=== PATIENT | female | born 1980 | race Caucasian/White ===

== ENCOUNTER 2016-09-17 00:49 | Emergency (ER) | payer OTHER ==
[2016-09-17 00:53] VITALS: TEMP 97.9
[2016-09-17] MEDS ORDERED: ONDANSETRON 4 MG/2 ML VIAL IVP STA (01:08)
[2016-09-17] MEDS ORDERED: ONDANSETRON ODT 4 MG TAB PO STA (01:12)
--- NOTE | 2016-09-17 01:27 | ED ---
Head Injury HPI - General Chief complaint: Head Injury Stated complaint: Fall-Head Injury Time Seen by Provider: 09/17/16 00:55 Source: patient, RN notes reviewed Mode of arrival: ambulatory Limitations: no limitations - History of Present Illness Initial comments: This a 36-year-old female presents emergency Department with chief complaint of head injury. Patient states she has A Left Foot and Was Using Her Crutches in the Dark and States That Her Dog Was on the Floor. She States That She Tripped over Her Dog and Fell and Hit Her Head. She Has Now Believes She Lost Consciousness, but the Headache, Nausea and Photophobia. Patient States That She Has a Small Neck on Top of Her Head and Also Laceration to Her Right Eyebrow Region. Patient States Her Tetanus Is Up-To-Date Last 5 Years. She Denies Any Focal Weakness, Chest Pain, Neck Pain, Back Pain. - Related Data Home Medications Medication Instructions Recorded Confirmed ALPRAZolam [Xanax] 0.25 mg PO Q8HR PRN 03/22/14 02/27/16 Cyclobenzaprine [Flexeril] 10 mg PO BID 02/27/16 02/27/16 Desvenlafaxine Succinate [Pristiq 50 mg PO DAILY 02/27/16 02/27/16 ER] Ibuprofen [Motrin] 600 mg PO Q8HR PRN 02/27/16 02/27/16 busPIRone HCL [Buspar] 7.5 mg PO BID 02/27/16 02/27/16 oxyCODONE-APAP 5-325MG [Percocet 1 tab PO Q6HR PRN 02/27/16 02/27/16 5-325 mg] Previous Rx's Medication Instructions Recorded Ondansetron [Zofran] 4 mg PO Q8HR PRN #8 tab 02/27/16 Ondansetron [Zofran] 4 mg PO Q8HR PRN #8 tab 02/27/16 Ondansetron Odt [Zofran Odt] 4 mg PO Q8HR PRN #10 tab 09/17/16 Allergies/Adverse reactions: Allergies Allergy/AdvReac Type Severity Reaction Status Date / Time codeine Allergy Mild Nausea & Verified 09/17/16 00:54 Vomiting duloxetine [From Cymbalta] Allergy Anaphylaxis Verified 02/27/16 22:15 hydrocodone Allergy Itching Verified 02/27/16 22:15 Review of Systems ROS Statement: Those systems with pertinent positive or pertinent negative responses have been documented in the HPI. ROS Other: All systems not noted in ROS Statement are negative. Past Medical History Past Medical History: No Reported History Additional Past Medical History / Comment(s): Chronic back pain thoracic History of Any Multi-Drug Resistant Organisms: None Reported Past Surgical History: Cholecystectomy Additional Past Surgical History / Comment(s): cyst from ovary, colonoscopy Past Psychological History: Anxiety, Depression Smoking Status: Never smoker Past Alcohol Use History: None Reported Past Drug Use History: None Reported General Exam Limitations: no limitations General appearance: alert, in no apparent distress Head exam: Present: atraumatic, normocephalic. Absent: normal inspection ( Small superficial laceration in the parietal region) Eye exam: Present: normal appearance, PERRL, EOMI, periorbital swelling ( Moderate right), periorbital tenderness (Mild right), other (Ecchymosis noted, superficial 1 cm laceration to the right eyebrow). Absent: scleral icterus, conjunctival injection ENT exam: Present: normal exam, normal oropharynx, mucous membranes moist, TM's normal bilaterally, normal external ear exam Neck exam: Present: normal inspection, full ROM. Absent: tenderness, meningismus, lymphadenopathy Respiratory exam: Present: normal lung sounds bilaterally. Absent: respiratory distress, wheezes, rales, rhonchi, stridor Cardiovascular Exam: Present: regular rate, normal rhythm, normal heart sounds. Absent: systolic murmur, diastolic murmur, rubs, gallop, clicks Neurological exam: Present: alert, oriented X3, CN II-XII intact, reflexes normal. Absent: motor sensory deficit Skin exam: Present: warm, dry, intact, normal color. Absent: rash Course Vital Signs 09/17/16 00:51 Temperature 97.9 F Pulse Rate 90 Respiratory 20 Rate Blood Pressure 158/102 O2 Sat by Pulse 98 Oximetry Medical Decision Making - Medical Decision Making 36-year-old female presented emergency from her for head injury. Patient CT does not show any acute abnormality though does show care malformation. Patiently follow-up with neurosurgeon. Patient will be discharged at this time with depression information. Return parameters were discussed patient is feeling better after Zofran. Patient's tetanus is up-to-date. Patient's laceration does not need closure. 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 Prescriptions: Ondansetron Odt [Zofran Odt] 4 mg PO Q8HR PRN #10 tab PRN Reason: Nausea Referrals: Jacob Nagy DO [Primary Care Provider] - 1-2 days Time of Disposition: 02:37
--- NOTE | 2016-09-17 02:27 | CT ---
EXAM: CT Head Without Intravenous Contrast. CLINICAL HISTORY: Reason: pain TECHNIQUE: Axial computed tomography images of the head/brain without intravenous contrast. CTDI is 60.3 mGy and DLP is 1054.2 mGy-cm. This CT exam was performed using one or more of the following dose reduction techniques: automated exposure control, adjustment of the mA and/or kV according to patient size, and/or use of iterative reconstruction technique. COMPARISON: No relevant prior studies available. FINDINGS: Brain: Unremarkable. No hemorrhage. No significant white matter disease. No edema. Ventricles: Unremarkable. No ventriculomegaly. Bones: No acute fracture. Sinuses: Unremarkable as visualized. No acute sinusitis. Mastoid air cells: Unremarkable as visualized. No mastoid effusion. Extracranial soft tissues: Moderate right periorbital soft tissue swelling. IMPRESSION: No acute intracranial abnormality. Low-lying configuration of the cerebellar tonsils, suggesting a Chiari I malformation. EXAM: CT Cervical Spine Without Intravenous Contrast. CLINICAL HISTORY: Reason: pain TECHNIQUE: Axial computed tomography images of the cervical spine without intravenous contrast. CTDI is 32.7 mGy and DLP is 569.4 mGy-cm. This CT exam was performed using one or more of the following dose reduction techniques: automated exposure control, adjustment of the mA and/or kV according to patient size, and/or use of iterative reconstruction technique. COMPARISON: No relevant prior studies available. FINDINGS: Vertebrae: Unremarkable. No acute fracture. Discs/spinal canal/neural foramina: Mild cervical degenerative disc disease. No spinal canal stenosis. Soft tissues: Unremarkable. Lung apices: Unremarkable as visualized. IMPRESSION: No acute findings in the cervical spine
[2016-09-17] MEDS ORDERED: ONDANSETRON 4 MG ODT STARTER PACK 2 TAB BTL PO STA (02:42)
[2016-09-17 02:59] VITALS: BP 127/65; PULSE 88; RESP 16
== END 2016-09-17 02:59 | disposition home or self-care (01) ==
LOC: EC 00:49
DX: S06.0X0A Concussion without loss of consciousness, initial encounter (principal); S01.111A Laceration without foreign body of right eyelid and periocular area, initial encounter; S01.81XA Laceration without foreign body of other part of head, initial encounter; G93.5 Compression of brain; R11.0 Nausea; F32.9 Major depressive disorder, single episode, unspecified; F41.9 Anxiety disorder, unspecified; Z79.899 Other long term (current) drug therapy; Z88.5 Allergy status to narcotic agent; Z88.8 Allergy status to other drugs, medicaments and biological substances; W01.10XA Fall on same level from slipping, tripping and stumbling with subsequent striking against unspecified object, initial encounter
CPT/HCPCS: 72125; 70450; 99283; S0119

== ENCOUNTER 2021-01-08 14:41 | Emergency (ER) | payer OTHER ==
[2021-01-08] MEDS ORDERED: KETOROLAC 15 MG/ML 1 ML VIAL IVP STA (15:47)
[2021-01-08] MEDS ORDERED: ONDANSETRON 4 MG/2 ML VIAL IVP STA (15:47)
[2021-01-08] MEDS ORDERED: SODIUM CHLORIDE 0.9% 1,000 ML IV STA (15:47)
[2021-01-08] MEDS ORDERED: diphenhydrAMINE 50 MG/ML 1 ML VIAL IVP STA (15:47)
--- NOTE | 2021-01-08 16:51 | ED ---
Headache HPI - General Chief Complaint: Headache Stated Complaint: Headache Time Seen by Provider: 01/08/21 15:33 Mode of arrival: ambulatory Limitations: no limitations - History of Present Illness Initial Comments: Patient is a 40-year-old female with history of chronic headaches, presenting to the emergency department with complaints of a headache and worsening over the past few days. She states that she is getting really upset because of her chronic headaches and if she feels like this is making it worse as well. She is having light sensitivity, some mild nausea associated with it as well. She denies any dizziness or blurry vision. She states this feels like her normal chronic headaches which is causing her to be anxious and teary-eyed and feels like it is making her symptoms worse. She denies any fevers or chills, no neck pain. No chest pain or shortness of breath today. She has no further complaints. - Related Data Home Medications Medication Instructions Recorded Confirmed ALPRAZolam [Xanax] 0.25 mg PO Q8HR PRN 03/22/14 02/27/16 Cyclobenzaprine [Flexeril] 10 mg PO BID 02/27/16 02/27/16 Desvenlafaxine Succinate [Pristiq 50 mg PO DAILY 02/27/16 02/27/16 ER] Ibuprofen [Motrin] 600 mg PO Q8HR PRN 02/27/16 02/27/16 busPIRone HCL [Buspar] 7.5 mg PO BID 02/27/16 02/27/16 oxyCODONE-APAP 5-325MG [Percocet 1 tab PO Q6HR PRN 02/27/16 02/27/16 5-325 mg] Previous Rx's Medication Instructions Recorded Ondansetron [Zofran] 4 mg PO Q8HR PRN #8 tab 02/27/16 Ondansetron [Zofran] 4 mg PO Q8HR PRN #8 tab 02/27/16 Ondansetron Odt [Zofran Odt] 4 mg PO Q8HR PRN #10 tab 09/17/16 Allergies Allergy/AdvReac Type Severity Reaction Status Date / Time codeine Allergy Mild Nausea & Verified 01/08/21 15:31 Vomiting duloxetine [From Cymbalta] Allergy Anaphylaxis Verified 01/08/21 15:31 hydrocodone Allergy Itching Verified 01/08/21 15:31 Review of Systems ROS Statement: Those systems with pertinent positive or pertinent negative responses have been documented in the HPI. ROS Other: All systems not noted in ROS Statement are negative. Past Medical History Past Medical History: No Reported History Additional Past Medical History / Comment(s): Chronic back pain thoracic, chronic headache History of Any Multi-Drug Resistant Organisms: None Reported Past Surgical History: Cholecystectomy Additional Past Surgical History / Comment(s): cyst from ovary, colonoscopy Past Psychological History: Anxiety, Depression Smoking Status: Never smoker Past Alcohol Use History: None Reported Past Drug Use History: None Reported General Exam - General Exam Comments Initial Comments: GENERAL: Patient is well-developed and well-nourished. Patient is nontoxic and in mild distress. HEAD: Atraumatic, normocephalic. EYES: Pupils equal round and reactive to light, extraocular movements intact, sclera anicteric, conjunctiva are normal. Eyelids were unremarkable. ENT: Nares patent, oropharynx clear without exudates. Moist mucous membranes. NECK: Normal range of motion, supple without lymphadenopathy or JVD. LUNGS: Unlabored respirations. Breath sounds clear to auscultation bilaterally and equal. No wheezes rales or rhonchi. HEART: Regular rate and rhythm without murmurs, rubs or gallops. ABDOMEN: Soft, nontender, normoactive bowel sounds. No guarding, no rebound. No masses appreciated. : Deferred MUSCULOSKELETAL: Normal extremities with adequate strength and normal range of motion, no pitting or edema. No clubbing or cyanosis. NEUROLOGICAL: Patient is alert and oriented x 3. Motor and sensory are also intact. Cranial nerves II through XII grossly intact. Symmetrical smile. Normal speech, normal gait. PSYCH: Normal mood, normal affect. SKIN: Warm, Dry, normal turgor, no rashes or lesions noted. Limitations: no limitations Course Vital Signs 01/08/21 15:25 Temperature 98.3 F Pulse Rate 99 Respiratory 20 Rate Blood Pressure 158/98 O2 Sat by Pulse 99 Oximetry Medical Decision Making - Medical Decision Making Patient is a 40-year-old female with history of chronic headaches, presenting with a headache increasing with the past few days. She denies any dizziness or blurry vision. Her exam is unremarkable, no acute neuro deficits. She is having some anxiety associated this and getting upset secondary to the fact that she's been having headaches for a long time now. She has been seeing pain management for this. Patient did not want anything stronger than Toradol. I gave her some fluids, Benadryl, Zofran and Toradol. She reports improvement in her symptoms. States her pain is about 4/10 and she feels much better. Patient states her neighbor is coming to pick her up. She feels stable for discharge. She will follow-up with her regular doctors. Return parameters were discussed with her and she verbalized understanding. Case discussed with Dr. Sandoval. Disposition Clinical Impression: Headache Disposition: HOME SELF-CARE Condition: Stable Instructions (If sedation given, give patient instructions): Acute Headache (ED) Additional Instructions: Please return to the Emergency Department if symptoms worsen or any other concerns. Trial of Excedrin extra strength for any future severe headaches. Please follow up with your primary care physician. Is patient prescribed a controlled substance at d/c from ED?: No Referrals: Chidi Romero DO [Primary Care Provider] - 1-2 days Time of Disposition: 16:51
[2021-01-08 17:02] VITALS: BP 128/78; PULSE 74; RESP 16; TEMP 98.2
== END 2021-01-08 17:01 | disposition home or self-care (01) ==
LOC: EC 14:41
DX: R51.9 Headache, unspecified (principal); F32.9 Major depressive disorder, single episode, unspecified; F41.9 Anxiety disorder, unspecified; Z79.1 Long term (current) use of non-steroidal anti-inflammatories (NSAID); Z79.899 Other long term (current) drug therapy; Z88.5 Allergy status to narcotic agent; Z88.8 Allergy status to other drugs, medicaments and biological substances; Z90.49 Acquired absence of other specified parts of digestive tract
CPT/HCPCS: 96374; 96375 ×2; 96361; 99283; J1200; J2405; J1885

== ENCOUNTER → 2022-10-10 | Outpatient (CLI) | payer OTHER ==
--- NOTE | 2022-10-10 15:28 | US ---
EXAMINATION TYPE: US kidneys/renal and bladder DATE OF EXAM: 10/10/2022 COMPARISON: NONE CLINICAL INDICATION: Female, 42 years old with history of R10.9 ABD PAIN; Flank pain x couple weeks. EXAM MEASUREMENTS: Right Kidney: 11.5 x 5.6 x 5.2 cm Left Kidney: 12.9 x 6.5 x 6.0 cm Right Kidney: No hydronephrosis or masses seen Left Kidney: *Appears enlarged. Hyperechoic focus seen at mid: 0.3 x 0.4 x 0.2 cm. Bladder: Appears wnl Bilateral Jets seen: Yes Urinary bladder is sonolucent. IMPRESSION: 1. Nonobstructing left renal stone
== END | disposition home or self-care (01) ==
LOC: RADUSWWP 07:44
PROVIDERS: ATTEND Family Medicine
DX: N20.0 Calculus of kidney (principal)
CPT/HCPCS: 76770

== ENCOUNTER 2023-02-16 16:51 | Emergency (ER) | payer OTHER ==
[2023-02-16 17:33] VITALS: TEMP 99.1
--- NOTE | 2023-02-16 17:46 | ED ---
General Adult HPI - General Chief complaint: Psychiatric Symptoms Stated complaint: Mental Health Time Seen by Provider: 02/16/23 17:19 Source: patient, RN notes reviewed, old records reviewed Mode of arrival: ambulatory Limitations: no limitations - History of Present Illness Initial comments: 42-year-old female brought in for mental health evaluation. Local police had accompanied the patient and have petitioned for mental health evaluation. She had cut her left forearm which she states she has done before after an argument with her . She does deal with depression and follows as an outpatient regarding mental health. - Related Data Home Medications Medication Instructions Recorded Confirmed ALPRAZolam [Xanax] 0.25 mg PO Q8HR PRN 03/22/14 02/27/16 Cyclobenzaprine [Flexeril] 10 mg PO BID 02/27/16 02/27/16 Desvenlafaxine Succinate [Pristiq 50 mg PO DAILY 02/27/16 02/27/16 ER] Ibuprofen [Motrin] 600 mg PO Q8HR PRN 02/27/16 02/27/16 busPIRone HCL [Buspar] 7.5 mg PO BID 02/27/16 02/27/16 oxyCODONE-APAP 5-325MG [Percocet 1 tab PO Q6HR PRN 02/27/16 02/27/16 5-325 mg] Previous Rx's Medication Instructions Recorded Ondansetron [Zofran] 4 mg PO Q8HR PRN #8 tab 02/27/16 Ondansetron [Zofran] 4 mg PO Q8HR PRN #8 tab 02/27/16 Ondansetron Odt [Zofran Odt] 4 mg PO Q8HR PRN #10 tab 09/17/16 Allergies Allergy/AdvReac Type Severity Reaction Status Date / Time codeine Allergy Mild Nausea & Verified 11/17/22 18:22 Vomiting duloxetine [From Cymbalta] Allergy Anaphylaxis Verified 11/17/22 18:22 hydrocodone Allergy Itching Verified 11/17/22 18:22 Review of Systems ROS Statement: Those systems with pertinent positive or pertinent negative responses have been documented in the HPI. ROS Other: All systems not noted in ROS Statement are negative. Past Medical History Past Medical History: No Reported History Additional Past Medical History / Comment(s): Chronic back pain thoracic, chronic headache History of Any Multi-Drug Resistant Organisms: None Reported Past Surgical History: Cholecystectomy Additional Past Surgical History / Comment(s): cyst from ovary, colonoscopy Past Psychological History: Anxiety, Depression Smoking Status: Never smoker Past Alcohol Use History: None Reported Past Drug Use History: None Reported General Exam Limitations: no limitations General appearance: alert, in no apparent distress, anxious Head exam: Present: atraumatic, normocephalic Eye exam: Present: normal appearance, PERRL Respiratory exam: Present: normal lung sounds bilaterally. Absent: respiratory distress, wheezes Cardiovascular Exam: Present: regular rate, normal rhythm GI/Abdominal exam: Present: soft. Absent: distended, tenderness, guarding Neurological exam: Present: alert Psychiatric exam: Present: anxious, suicidal ideation Skin exam: Present: warm, dry, other (Superficial laceration to the left forearm, no repairable laceration) Course Vital Signs 02/16/23 17:12 Temperature 99.1 F Pulse Rate 76 Respiratory 16 Rate Blood Pressure 153/96 O2 Sat by Pulse 98 Oximetry - Reevaluation(s) Reevaluation #1: 02/16/23 17:46 Cleared for EPS evaluation. Medical Decision Making - Medical Decision Making Was pt. sent in by a medical professional or institution (, PA, [employer], urgent care, hospital, or snf...) When possible be specific @ -No Did you speak to anyone other than the patient for history (EMS, parent, family, police, friend...)? What history was obtained from this source @ -No Did you review nursing and triage notes (agree or disagree)? Why? @ -I reviewed and agree with nursing and triage notes Were old charts reviewed (outside hosp., previous admission, EMS record, old EKG, old radiological studies, urgent care reports/EKG's, snf records)? Report findings @ -No old charts were reviewed Differential Diagnosis (chest pain, altered mental status, abdominal pain women, abdominal pain men, vaginal bleeding, weakness, fever, dyspnea, syncope, head ache, dizziness, GI bleed, back pain, seizure, CVA, palpatations, mental health, musculoskeletal)? @ Differential Mental Health Depression, anxiety, bipolar, psychosis, schizophrenia, borderline personality, situational depression, adjustment disorder, behavioral disorder, brain tumor, malingering, substance abuse, encephalopathy, medication reaction, dementia, hypothyroidism, degenerative neurologic disorder, lupus.... This is not meant to be all-inclusive list EKG interpreted by me (3pts min.). @ -As above X-rays interpreted by me (1pt min.). @ -None done CT interpreted by me (1pt min.). @ -None done U/S interpreted by me (1pt. min.). @ -None done What testing was considered but not performed or refused? (CT, X-rays, U/S, labs)? Why? @ -None What meds were considered but not given or refused? Why? @ -None Did you discuss the management of the patient with other professionals (professionals i.e. Dr., PA, [employer], lab, RT, psych nurse, social services, commercial pest control representative, teacher, community service officer coordinator, leather case finisher)? Give summary @Case discussed with EPS nurse Was smoking cessation discussed for >3mins.? @ -No Was critical care preformed (if so, how long)? @ -No Were there social determinants of health that impacted care today? How? (Homelessness, low income, unemployed, alcoholism, drug addiction, transportation, low edu. Level, literacy, decrease access to med. care, fpc, rehab)? @ -No Was there de-escalation of care discussed even if they declined (Discuss DNR or withdrawal of care, Hospice)? DNR status @ -No What co-morbidities impacted this encounter? (DM, HTN, Smoking, COPD, CAD, Cancer, CVA, ARF, Chemo, Hep., AIDS, mental health diagnosis, sleep apnea, morbid obesity)? @ -[Depression and anxiety Was patient admitted / discharged? Hospital course, mention meds given and route, prescriptions, significant lab abnormalities, going to OR and other pertinent info. @ -[22-year-old female had been medically cleared and evaluated by EPS after she was petitioned by local police. Patient was felt to be safe for discharge and has a safety plan. She has good outpatient follow-up and is given return parameters. Undiagnosed new problem with uncertain prognosis? @ -No Drug Therapy requiring intensive monitoring for toxicity (Heparin, Nitro, Insulin, Cardizem)? @ -No Were any procedures done? @ -No Diagnosis/symptom? @ -Depression Acute, or Chronic, or Acute on Chronic? @ -[Acute on chronic Uncomplicated (without systemic symptoms) or Complicated (systemic symptoms)? @ -default Side effects of treatment? @ -No Exacerbation, Progression, or Severe Exacerbation? @ -No Poses a threat to life or bodily function? How? (Chest pain, [place], PA, pneumonia, PE, COPD, DKA, ARF, appy, cholecystitis, CVA, Diverticulitis, Homicidal, Suicidal, threat to staff... and all critical care pts) @ -[Low risk at this time - Lab Data Lab Results 02/16/23 Range/Units 17:51 Urine Opiates Screen Not Detected (NotDetected) Ur Oxycodone Screen Not Detected (NotDetected) Urine Methadone Screen Not Detected (NotDetected) Ur Propoxyphene Screen Not Detected (NotDetected) Ur Barbiturates Screen Not Detected (NotDetected) U Tricyclic Antidepress Not Detected (NotDetected) Ur Phencyclidine Scrn Not Detected (NotDetected) Ur Amphetamines Screen Not Detected (NotDetected) U Methamphetamines Scrn Not Detected (NotDetected) U Benzodiazepines Scrn Not Detected (NotDetected) Urine Cocaine Screen Not Detected (NotDetected) U Marijuana (THC) Screen Detected H (NotDetected) Disposition Clinical Impression: Depression Disposition: HOME SELF-CARE Condition: Fair Instructions (If sedation given, give patient instructions): Depression (ED) Additional Instructions: Please follow up with with your psychiatrist and/or therapist as an outpatient. Please return with any worsening or changing symptoms Is patient prescribed a controlled substance at d/c from ED?: No Referrals: Jacob Nagy DO [Primary Care Provider] - 1-2 days Time of Disposition: 19:57
[2023-02-16 18:28] LABS: Amphetamine Screen,Urine Not Detected (NotDetected); Barbiturate Screen,Urine Not Detected (NotDetected); Benzodiazepines Screen,Urine Not Detected (NotDetected); Cocaine Screen,Urine Not Detected (NotDetected); Methadone Screen, Urine Not Detected (NotDetected); Opiate Screen,Urine Not Detected (NotDetected); Oxycodone Screen, Urine Not Detected (NotDetected); Phencyclidine Screen,Urine Not Detected (NotDetected); Tricyclic Antidepressant,Urine Not Detected (NotDetected); Urn Cannabinoid Scrn Detected (NotDetected)
[2023-02-16 20:33] VITALS: BP 145/86; PULSE 74; RESP 18
== END 2023-02-16 20:27 | disposition home or self-care (01) ==
LOC: EC 16:51
DX: F32.A Depression, unspecified (principal); F41.9 Anxiety disorder, unspecified; Z88.5 Allergy status to narcotic agent; Z88.8 Allergy status to other drugs, medicaments and biological substances; Z79.899 Other long term (current) drug therapy
CPT/HCPCS: 80306; 82075; 99285

== ENCOUNTER 2023-08-15 16:02 | Emergency (ER) | payer OTHER ==
[2023-08-15 16:25] VITALS: RESP 20
--- NOTE | 2023-08-15 16:45 | ED ---
Female Urogenital HPI - General Chief complaint: Urogenital Stated complaint: Urogenital Time Seen by Provider: 08/15/23 16:10 Source: patient, RN notes reviewed Mode of arrival: ambulatory Limitations: no limitations - History of Present Illness Initial comments: 43-year-old female presenting with hematuria x 1 day. States she was treated for UTI with Bactrim from urgent care 3 days ago. Symptoms were initially urinary urgency, dysuria, and suprapubic discomfort. symptoms are improving, however yesterday patient noticed clots of blood in her urine. Admits mild low back pain and nausea. patient states she initially thought she was on her menst rual period but discovered blood was coming from the urethra and not the vagina. She is tolerating orals. last menstrual period was 3 weeks ago. She is a lifetime non-smoker. - Related Data Previous Rx's Medication Instructions Recorded Ketorolac [Toradol] 10 mg PO Q8HR #15 tab 08/15/23 Tamsulosin [Flomax] 0.4 mg PO DAILY #7 cap 08/15/23 Allergies Allergy/AdvReac Type Severity Reaction Status Date / Time codeine Allergy Mild Nausea & Verified 08/15/23 16:19 Vomiting acetaminophen Allergy Anaphylaxis Verified 08/15/23 16:19 [From Tylenol-Codeine #3] duloxetine [From Cymbalta] Allergy Anaphylaxis Verified 08/15/23 16:19 hydrocodone Allergy Itching Verified 08/15/23 16:19 Review of Systems ROS Statement: Those systems with pertinent positive or pertinent negative responses have been documented in the HPI. ROS Other: All systems not noted in ROS Statement are negative. Past Medical History Past Medical History: No Reported History Additional Past Medical History / Comment(s): Chronic back pain thoracic, chronic headache History of Any Multi-Drug Resistant Organisms: None Reported Past Surgical History: Cholecystectomy Additional Past Surgical History / Comment(s): cyst from ovary, colonoscopy Past Psychological History: Anxiety, Depression Smoking Status: Never smoker Past Alcohol Use History: None Reported Past Drug Use History: None Reported General Exam Limitations: no limitations General appearance: alert, in no apparent distress Respiratory exam: Present: normal lung sounds bilaterally. Absent: respiratory distress, wheezes, rales, rhonchi, stridor Cardiovascular Exam: Present: regular rate, normal rhythm, normal heart sounds. Absent: systolic murmur, diastolic murmur, rubs, gallop, clicks GI/Abdominal exam: Present: soft, tenderness (Mild suprapubic tenderness), normal bowel sounds. Absent: distended, guarding, rebound, rigid Back exam: Absent: CVA tenderness (R), CVA tenderness (L) Neurological exam: Present: alert, oriented X3, CN II-XII intact Psychiatric exam: Present: normal affect, normal mood Skin exam: Present: warm, dry, intact, normal color. Absent: rash Course Vital Signs 08/15/23 08/15/23 16:17 19:31 Temperature 98.1 F 97.9 F Pulse Rate 73 71 Respiratory 20 20 Rate Blood Pressure 124/89 121/76 O2 Sat by Pulse 99 99 Oximetry Medical Decision Making - Medical Decision Making Was pt. sent in by a medical professional or institution (, PA, CANDY PACKER, urgent care, hospital, or retirement...) When possible be specific @ -No Did you speak to anyone other than the patient for history (EMS, parent, family, police, friend...)? What history was obtained from this source @ -No Did you review nursing and triage notes (agree or disagree)? Why? @ -I reviewed and agree with nursing and triage notes Were old charts reviewed (outside hosp., previous admission, EMS record, old EKG, old radiological studies, urgent care reports/EKG's, retirement records)? Report findings @ -No old charts were reviewed Differential Diagnosis (chest pain, altered mental status, abdominal pain women, abdominal pain men, vaginal bleeding, weakness, fever, dyspnea, syncope, headache, dizziness, GI bleed, back pain, seizure, CVA, palpatations, mental health, musculoskeletal)? @ -Nephrolithiasis, urinary tract infection, bladder cancer, routine menses EKG interpreted by me (3pts min.). @ -None X-rays interpreted by me (1pt min.). @ -None done CT interpreted by me (1pt min.). @ -CT of abdomen pelvis reveal 2 mm stone in right kidney with no hydronephrosis U/S interpreted by me (1pt. min.). @ -None done What testing was considered but not performed or refused? (CT, X-rays, U/S, labs)? Why? @ -None What meds were considered but not given or refused? Why? @ -None Did you discuss the management of the patient with other professionals (professionals i.e. , PA, CANDY PACKER, lab, RT, psych nurse, social group worker, pilot plant operator helper, teacher, custom protection officer, therapeutic case manager)? Give summary @ -No Was smoking cessation discussed for >3mins.? @ -No Was critical care preformed (if so, how long)? @ -No Were there social determinants of health that impacted care today? How? (Homelessness, low income, unemployed, alcoholism, drug addiction, transportation, low edu. Level, literacy, decrease access to med. care, shelter, rehab)? @ -No Was there de-escalation of care discussed even if they declined (Discuss DNR or withdrawal of care, Hospice)? DNR status @ -No What co-morbidities impacted this encounter? (DM, HTN, Smoking, COPD, CAD, Cancer, CVA, ARF, Chemo, Hep., AIDS, mental health diagnosis, sleep apnea, morbid obesity)? @ -None Was patient admitted / discharged? Hospital course, mention meds given and route, prescriptions, significant lab abnormalities, going to OR and other pertinent info. @ -Patient was discharged. Patient was seen and evaluated for gross hematuria x 1 day. Is currently being treated for UTI with Bactrim. CT reveals 2 mm kidney stone on right side. Patient given IV fluids, Toradol, and Zofran which relieved symptoms. UA positive for blood and white blood cells, patient is currently taking Bactrim. Patient is discharged with Toradol and Flomax. Discussed aggressive hydration. Return symptoms discussed. Patient discharged in stable condition. Case discussed with Dr. Davis Undiagnosed new problem with uncertain prognosis? @ -No Drug Therapy requiring intensive monitoring for toxicity (Heparin, Nitro, Insulin, Cardizem)? @ -No Were any procedures done? @ -No Diagnosis/symptom? @ -Nephrolithiasis Acute, or Chronic, or Acute on Chronic? @ -Acute Uncomplicated (without systemic symptoms) or Complicated (systemic symptoms)? @ -Uncomplicated Side effects of treatment? @ -No Exacerbation, Progression, or Severe Exacerbation? @ -No Poses a threat to life or bodily function? How? (Chest pain, USA, MA, pneumonia, PE, COPD, DKA, ARF, appy, cholecystitis, CVA, Diverticulitis, Homicidal, Suicidal, threat to staff... and all critical care pts) @ -No - Lab Data Result diagrams: 08/15/23 17:40 08/15/23 17:40 Lab Results 08/15/23 08/15/23 08/15/23 Range/Units 17:40 17:40 17:40 WBC 5.2 (3.8-10.6) k/uL RBC 4.47 (3.80-5.40) m/uL Hgb 12.9 (11.4-16.0) gm/dL Hct 39.8 (34.0-46.0) % MCV 89.1 (80.0-100.0) fL MCH 28.9 (25.0-35.0) pg MCHC 32.5 (31.0-37.0) g/dL RDW 12.5 (11.5-15.5) % Plt Count 318 (150-450) k/uL MPV 7.1 Neutrophils % 59 % Lymphocytes % 24 % Monocytes % 9 % Eosinophils % 4 % Basophils % 1 % Neutrophils # 3.1 (1.3-7.7) k/uL Lymphocytes # 1.2 (1.0-4.8) k/uL Monocytes # 0.5 (0-1.0) k/uL Eosinophils # 0.2 (0-0.7) k/uL Basophils # 0.0 (0-0.2) k/uL Sodium (137-145) mmol/L Potassium (3.5-5.1) mmol/L Chloride (98-107) mmol/L Carbon Dioxide (22-30) mmol/L Anion Gap mmol/L BUN (7-17) mg/dL Creatinine (0.52-1.04) mg/dL Est GFR (CKD-EPI)AfAm (>60 ml/min/1.73 sqM) Est GFR (CKD-EPI)NonAf (>60 ml/min/1.73 sqM) Glucose (74-99) mg/dL Calcium (8.4-10.2) mg/dL Total Bilirubin (0.2-1.3) mg/dL AST (14-36) U/L ALT (4-34) U/L Alkaline Phosphatase (38-126) U/L Total Protein (6.3-8.2) g/dL Albumin (3.5-5.0) g/dL Urine Color Dark Brown Urine Appearance Bloody H (Clear) Urine RBC >182 H (0-5) /hpf Urine WBC 70 H (0-5) /hpf Ur Squamous Epith Cells 17 H (0-4) /hpf Urine Mucus Many H (None) /hpf Urine HCG, Qual Not Detected (Not Detectd) 08/15/23 Range/Units 17:40 WBC (3.8-10.6) k/uL RBC (3.80-5.40) m/uL Hgb (11.4-16.0) gm/dL Hct (34.0-46.0) % MCV (80.0-100.0) fL MCH (25.0-35.0) pg MCHC (31.0-37.0) g/dL RDW (11.5-15.5) % Plt Count (150-450) k/uL MPV Neutrophils % % Lymphocytes % % Monocytes % % Eosinophils % % Basophils % % Neutrophils # (1.3-7.7) k/uL Lymphocytes # (1.0-4.8) k/uL Monocytes # (0-1.0) k/uL Eosinophils # (0-0.7) k/uL Basophils # (0-0.2) k/uL Sodium 137 (137-145) mmol/L Potassium 4.0 (3.5-5.1) mmol/L Chloride 105 (98-107) mmol/L Carbon Dioxide 24 (22-30) mmol/L Anion Gap 8 mmol/L BUN 14 (7-17) mg/dL Creatinine 0.58 (0.52-1.04) mg/dL Est GFR (CKD-EPI)AfAm >90 (>60 ml/min/1.73 sqM) Est GFR (CKD-EPI)NonAf >90 (>60 ml/min/1.73 sqM) Glucose 91 (74-99) mg/dL Calcium 9.1 (8.4-10.2) mg/dL Total Bilirubin 0.5 (0.2-1.3) mg/dL AST 26 (14-36) U/L ALT 17 (4-34) U/L Alkaline Phosphatase 70 (38-126) U/L Total Protein 7.4 (6.3-8.2) g/dL Albumin 4.2 (3.5-5.0) g/dL Urine Color Urine Appearance (Clear) Urine RBC (0-5) /hpf Urine WBC (0-5) /hpf Ur Squamous Epith Cells (0-4) /hpf Urine Mucus (None) /hpf Urine HCG, Qual (Not Detectd) Disposition Clinical Impression: Right nephrolithiasis Disposition: HOME SELF-CARE Condition: Stable Instructions (If sedation given, give patient instructions): Kidney Stones (ED) Additional Instructions: Please return to the Emergency Department if symptoms worsen or any other concerns. Prescriptions: Tamsulosin [Flomax] 0.4 mg PO DAILY #7 cap Ketorolac [Toradol] 10 mg PO Q8HR #15 tab Is patient prescribed a controlled substance at d/c from ED?: No Referrals: Jacob Nagy DO [Primary Care Provider] - 1-2 days Time of Disposition: 19:13
[2023-08-15] MEDS: ONDANSETRON 4 MG/2 ML VIAL IVP STA (17:34)
[2023-08-15] MEDS: SODIUM CHLORIDE 0.9% 1,000 ML IV STA (17:35)
[2023-08-15 17:48] LABS: Basophils % (A) 1 %; Eosinophils # (A) 0.2 k/uL (0-0.7); Eosinophils % (A) 4 %; HCT 39.8 % (34.0-46.0); HGB 12.9 gm/dL (11.4-16.0); Lymphocytes # (A) 1.2 k/uL (1.0-4.8); Lymphocytes % (A) 24 %; MCH 28.9 pg (25.0-35.0); MCHC 32.5 g/dL (31.0-37.0); MCV 89.1 fL (80.0-100.0); Mean Platelet Volume 7.1; Monocytes # (A) 0.5 k/uL (0-1.0); Monocytes % (A) 9 %; Neutrophils # (A) 3.1 k/uL (1.3-7.7); Neutrophils % (A) 59 %; Platelet Count 318 k/uL (150-450); RBC 4.47 m/uL (3.80-5.40); RDW 12.5 % (11.5-15.5); WBC 5.2 k/uL (3.8-10.6)
[2023-08-15 18:00] LABS: ALT 17 U/L (4-34); AST 26 U/L (14-36); African American GFR (CKD) >90 (>60 ml/min/1.73 sqM); Albumin 4.2 g/dL (3.5-5.0); Alkaline Phosphatase 70 U/L (38-126); Anion Gap 8 mmol/L; Blood Urea Nitrogen 14 mg/dL (7-17); Calcium 9.1 mg/dL (8.4-10.2); Carbon Dioxide 24 mmol/L (22-30); Chloride 105 mmol/L (98-107); Glucose 91 mg/dL (74-99); Non-African American GFR(CKD) >90 (>60 ml/min/1.73 sqM); Sodium 137 mmol/L (137-145); Total Bilirubin 0.5 mg/dL (0.2-1.3); Total Protein 7.4 g/dL (6.3-8.2)
[2023-08-15 18:03] LABS: Mucus,Urine Many /hpf; RBC,Urine >182 /hpf (0-5); Squamous Epithelial Cell,Urine 17 /hpf (0-4); WBC,Urine 70 /hpf (0-5)
[2023-08-15 18:04] LABS: Appearance,Urine Bloody (Clear); Color,Urine Dark Brown
--- NOTE | 2023-08-15 18:28 | CT ---
EXAMINATION TYPE: CT abdomen pelvis wo con CT DLP: 682.4 mGycm, Automated exposure control for dose reduction was used. DATE OF EXAM: 08/15/2023 5:19 PM COMPARISON: None. CLINICAL INDICATION:Female, 43 years old with history of hematuria; hematuria TECHNIQUE: Axial CT of the abdomen and pelvis. Sagittal and coronal reformats were created on a [employer] workstation. Contrast used: mL of , (none if empty) Oral contrast used: without Oral Contrast (none if empty) FINDINGS: LOWER CHEST: Unremarkable ABDOMEN LIVER: Unremarkable GALLBLADDER AND BILE DUCTS: The gallbladder is surgically absent. Biliary tree does not appear pathol ogically dilated. PANCREAS: Unremarkable. SPLEEN: Unremarkable. ADRENAL GLANDS: Mildly thickened and small nodular appearance of the adrenals, could be due to hyperp lasia and/or adenomatoid changes.. KIDNEYS AND URETERS: A 2 mm nonobstructing calculus in the upper pole right kidney. No left renal manny culi. Right ureter is difficult to trace but there are no definite ureteral calculi or ureterectasis. Pelvic phleboliths are present. No left ureteral calculi or ureterectasis. PELVIS BLADDER: Almost empty, grossly unremarkable. REPRODUCTIVE: Uterus and ovaries are present, grossly unremarkable by CT. ABDOMEN & PELVIS STOMACH AND BOWEL: Stomach and small bowel are nondistended, no evidence of obstruction. Normal vi endix. Mild to moderate stool throughout the colon, without acute process demonstrated. There are s cattered diverticula without signs of diverticulitis. There appears to be anastomotic suture ring in the inferior rectum. There is some mild nearby stranding and ground glass opacity in the perirectal f at. PERITONEUM/RETROPERITONEUM: No evidence of pneumoperitoneum or free fluid. VASCULATURE: Aorta and major branches are grossly unremarkable. No AAA. LYMPH NODES: No enlarged nodes by CT size criteria. SOFT TISSUE/ABDOMINAL WALL: No acute finding MUSCULOSKELETAL: No acute osseous abnormalities. Mild/moderate disc degeneration changes are present throughout the thoracolumbar spine. This appears most progressed at the L5-S1 level, where there is neyrrfcs-xn-ldrytb canal stenosis and severe bilateral neuroforaminal stenoses. Small sclerotic focus in the left pubic bone close to the symphysis, may relate to bone island. IMPRESSION: 1. Nonobstructing 2 mm calculus in the upper pole right kidney. 2. No ureteral calculi or hydronephrosis. 3. Anastomotic suture in the lower rectum. Fat stranding and haziness in the nearby perirectal fat m ay represent posttreatment changes. 4. No evidence of bowel obstruction or free air. Normal appendix.
[2023-08-15] MEDS: KETOROLAC 15 MG/ML 1 ML VIAL IVP STA (19:23)
[2023-08-15 19:39] VITALS: BP 121/76; PULSE 71; TEMP 97.9
== END 2023-08-15 19:50 | disposition home or self-care (01) ==
LOC: EC 16:02
DX: N20.0 Calculus of kidney (principal); Z88.5 Allergy status to narcotic agent; Z88.6 Allergy status to analgesic agent; Z88.8 Allergy status to other drugs, medicaments and biological substances; Z90.49 Acquired absence of other specified parts of digestive tract
CPT/HCPCS: 36415; 80053; 85025; 81001; 81025; 74176; 99284; 96374; 96375; 96361 ×2; J2405; J1885

== ENCOUNTER 2024-02-05 13:52 | Emergency (ER) | payer OTHER ==
[2024-02-05 14:20] VITALS: RESP 18; TEMP 98
[2024-02-05] MEDS: SODIUM CHLORIDE 0.9% 1,000 ML IV STA (15:38)
--- NOTE | 2024-02-05 15:38 | ED ---
Headache HPI - General Chief Complaint: Headache Stated Complaint: Fall/Head Time Seen by Provider: 02/05/24 14:30 Source: RN notes reviewed Mode of arrival: ambulatory Limitations: no limitations - History of Present Illness Initial Comments: 43-year-old female presenting with head injury 1 day ago. Patient states she was walking in the dark in the basement yesterday and tripped over a computer tower and fell forward, corrected herself and then fell backwards, hitting the back of her head on the ground. Denies loss of consciousness but states she experienced a flash of white light. She has experienced multiple episodes of emesis since the fall. She also admits to photophobia. Denies vision changes. She also admits she believes she broke her right great toe during the fall. Denies other injuries. Denies blood thinners. - Related Data Previous Rx's Medication Instructions Recorded Ketorolac [Toradol] 10 mg PO Q8HR #15 tab 08/15/23 Tamsulosin [Flomax] 0.4 mg PO DAILY #7 cap 08/15/23 Allergies Allergy/AdvReac Type Severity Reaction Status Date / Time codeine Allergy Mild Nausea & Verified 08/15/23 16:19 Vomiting acetaminophen Allergy Anaphylaxis Verified 08/15/23 16:19 [From Tylenol-Codeine #3] duloxetine [From Cymbalta] Allergy Anaphylaxis Verified 08/15/23 16:19 hydrocodone Allergy Itching Verified 08/15/23 16:19 Review of Systems ROS Statement: Those systems with pertinent positive or pertinent negative responses have been documented in the HPI. ROS Other: All systems not noted in ROS Statement are negative. Past Medical History Past Medical History: No Reported History Additional Past Medical History / Comment(s): Chronic back pain thoracic, chronic headache, chiari malformation, degenerative disc disease, damaged occipital nerve History of Any Multi-Drug Resistant Organisms: None Reported Past Surgical History: Cholecystectomy Additional Past Surgical History / Comment(s): cyst from ovary, colonoscopy Past Psychological History: Anxiety, Depression Smoking Status: Never smoker Past Alcohol Use History: None Reported Past Drug Use History: None Reported General Exam Limitations: no limitations General appearance: alert, in no apparent distress Head exam: Present: atraumatic, normocephalic, normal inspection, other (No hematomas, lacerations, or palpable skull fractures) Eye exam: Present: normal appearance, PERRL, EOMI. Absent: scleral icterus, conjunctival injection, periorbital swelling ENT exam: Present: normal exam, mucous membranes moist Neck exam: Present: normal inspection. Absent: tenderness, meningismus, lymph adenopathy Right Ankle exam: Present: normal inspection, full ROM. Absent: tenderness, swelling Foot/Toe exam: Present: full ROM, tenderness (Tenderness first digit), swelling. Absent: normal inspection (Diffuse contusions right first digit), abrasion, deformity, dislocation, puncture wound Back exam: Present: normal inspection Neurological exam: Present: alert, oriented X3, CN II-XII intact Psychiatric exam: Present: normal affect, normal mood Skin exam: Present: warm, dry, intact, normal color. Absent: rash Course Vital Signs 02/05/24 02/05/24 14:16 18:34 Temperature 98 F 98 F Pulse Rate 57 L 62 Respiratory 18 18 Rate Blood Pressure 130/81 128/84 O2 Sat by Pulse 99 99 Oximetry Medical Decision Making - Medical Decision Making Was pt. sent in by a medical professional or institution (Dr. PA, BUTTONHO[employer] FACER, urgent care, hospital, or fpc...) When possible be specific @ -No Did you speak to anyone other than the patient for history (EMS, parent, family, police, friend...)? What history was obtained from this source @ -Family supplemented history Did you review nursing and triage notes (agree or disagree)? Why? @ -I reviewed and agree with nursing and triage notes Were old charts reviewed (outside hosp., previous admission, EMS record, old EKG, old radiological studies, urgent care reports/EKG's, fpc records)? Report findings @ -No old charts were reviewed Differential Diagnosis (chest pain, altered mental status, abdominal pain women, abdominal pain men, vaginal bleeding, weakness, fever, dyspnea, syncope, headache, dizziness, GI bleed, back pain, seizure, CVA, palpatations, mental health, musculoskeletal)? @ -Differential Musculoskeletal Concussion, intracranial bleed, subdural hematoma, skull fracture, muscular strain, contusion, ligament sprain, fracture, arthritis, septic arthritis, bursitis, cellulitis, muscle spasm, nerve compression, DVT, arterial occlusion, herpes zoster, electrolyte abnormality, tumor.... This is not meant to be in all inclusive list EKG interpreted by me (3pts min.). @ -None X-rays interpreted by me (1pt min.). @ -X-ray right foot reveals nondisplaced distal phalanx fracture CT interpreted by me (1pt min.). @ -CT brain and C-spine reveals no acute process U/S interpreted by me (1pt. min.). @ -None done What testing was considered but not performed or refused? (CT, X-rays, U/S, labs)? Why? @ -None What meds were considered but not given or refused? Why? @ -None Did you discuss the management of the patient with other professionals (levi nielsen i.e. , PA, [employer]HO[employer] FACER, lab, RT, psych nurse, transition social worker, moisture machine tender, teacher, sheriffs officer, lead case manager)? Give summary @ -No Was smoking cessation discussed for >3mins.? @ -No Was critical care preformed (if so, how long)? @ -No Were there social determinants of health that impacted care today? How? (Homelessness, low income, unemployed, alcoholism, drug addiction, transportation, low edu. Level, literacy, decrease access to med. care, skilled nursing, rehab)? @ -No Was there de-escalation of care discussed even if they declined (Discuss DNR or withdrawal of care, Hospice)? DNR status @ -No What co-morbidities impacted this encounter? (DM, HTN, Smoking, COPD, CAD, Cancer, CVA, ARF, Chemo, Hep., AIDS, mental health diagnosis, sleep apnea, morbid obesity)? @ -None Was patient admitted / discharged? Hospital course, mention meds given and route, prescriptions, significant lab abnormalities, going to OR and other pertinent info. @ -Discharge. This is a 43 year old female presenting for head injury 1 day ago. Had a mechanical fall and hit the back of her head on the ground. Did not lose consciousness, not on thinners. She has been having nausea/vomiting since the incident with photosensitivity. Also reports she injured her right great toe. Neuro exam unremarkable. There is diffuse bruising and edema on distal first digit of right foot. Neurovascularly intact. Patient was provided with IV fluids, antiemetics, and analgesics. CT head and neck revealed no acute process. X-ray right foot reveals nondisplaced distal phalanx fracture. Discussed findings with patient. Discussed diagnosis of mild concussion and right toe fracture. Patient was placed in postop boot and advised orthopedic follow-up. Work note provided. Return precautions discussed as well as supportive care. Patient is agreeable to plan. Case was discussed with my ED attending Dr. Basilio. Patient discharged in stable condition. Undiagnosed new problem with uncertain prognosis? @ -No Drug Therapy requiring intensive monitoring for toxicity (Heparin, Nitro, Insulin, Cardizem)? @ -No Were any procedures done? @ -No Diagnosis/symptom? @ -Concussion, right nondisplaced distal phalanx fracture Acute, or Chronic, or Acute on Chronic? @ -Acute Uncomplicated (without systemic symptoms) or Complicated (systemic symptoms)? @ -Uncomplicated Side effects of treatment? @ -No Exacerbation, Progression, or Severe Exacerbation? @ -No Poses a threat to life or bodily function? How? (Chest pain, USA, [place], pneumonia, PE, COPD, DKA, ARF, appy, cholecystitis, CVA, Diverticulitis, Homicidal, Suicidal, threat to staff... and all critical care pts) @ -No Disposition Clinical Impression: Fracture of distal phalanx of right great toe, Head injury Disposition: HOME SELF-CARE Condition: Stable Instructions (If sedation given, give patient instructions): Toe Fracture (ED), Concussion (ED) Additional Instructions: Take Zofran as needed for nausea. Do not bear weight on right great toe for 2 weeks. Follow-up with Orthopedics if symptoms persist. Please return to the Emergency Department if symptoms worsen or any other concerns. Is patient prescribed a controlled substance at d/c from ED?: No Referrals: Jacob Nagy DO [Primary Care Provider] - 1-2 days Time of Disposition: 17:59
[2024-02-05] MEDS: ACETAMINOPHEN TAB 500 MG TAB PO STA (15:39)
--- NOTE | 2024-02-05 15:45 | XR ---
Right foot HISTORY: Trauma. COMPARISON: None. TECHNIQUE: 3 views of the right foot were obtained. FINDINGS: There is a nondisplaced fracture through the proximal aspect of the distal phalanx of the big toe. Th e fracture extends to the articular surface. No other significant abnormality seen. IMPRESSION: Nondisplaced fracture of the distal phalanx of the big toe. [facility], , 02/05/2024 3:43 PM
[2024-02-05] MEDS: ONDANSETRON 4 MG/2 ML VIAL IVP STA (15:49)
--- NOTE | 2024-02-05 16:34 | CT ---
EXAMINATION TYPE: CT brain ney kuo con DATE OF EXAM: 02/05/2024 COMPARISON: 09/17/2016 HISTORY: fell CT DLP: 1173 mGycm Automated exposure control for dose reduction was used. TECHNIQUE: CT scan of the head and cervical spine are performed without contrast. Findings: Head CT: Ventricles, basal cisterns and sulci over convexities within normal limits and there is no mass, mass effect or shift of midline structures. No abnormal density is seen throughout the brain parenchyma and there is no acute intra or extra-axia l hemorrhage. Posterior fossa including the brainstem, fourth ventricle and cerebellar pontine angles are grossly n ormal. The intraorbital contents appear normal and symmetric. Visualized paranasal sinuses are well aerated. CT cervical spine: Craniovertebral junction relationships and prevertebral soft tissues are normal. The cervical vertebral segments are normal in height and alignment and there is no fracture subluxati on. There is mild disc space narrowing and spondylosis at the C4-5, C5-6 and possibly C6-7 levels indicat ing mild degenerative disc disease. There is mild degeneration of the uncovertebral joints throughout the cervical region. The facet joints are intact. The bony cervical canal is widely patent and there is no bony encroachment of the neural foramina. The paraspinal soft tissues unremarkable. IMPRESSION: 1. Head CT: No acute bleed or mass effect. 2. CT cervical spine: No acute trauma. Mild degenerative disc disease in the mid to lower cervical sp ine. [facility], , 02/05/2024 4:32 PM
[2024-02-05] MEDS: ONDANSETRON 4 MG ODT STARTER PACK 2 TAB BTL PO STA (18:03)
[2024-02-05 18:35] VITALS: BP 128/84; PULSE 62
== END 2024-02-05 18:35 | disposition home or self-care (01) ==
LOC: EC 13:52
DX: S92.421A Displaced fracture of distal phalanx of right great toe, initial encounter for closed fracture (principal); S09.90XA Unspecified injury of head, initial encounter; Z88.5 Allergy status to narcotic agent; Z88.6 Allergy status to analgesic agent; Z88.8 Allergy status to other drugs, medicaments and biological substances; W01.0XXA Fall on same level from slipping, tripping and stumbling without subsequent striking against object, initial encounter; Y93.01 Activity, walking, marching and hiking
CPT/HCPCS: 73630; 72125; 70450; 99284; 96374; 96361; J2405; S0119